=== PATIENT | male | born 1950 | race Caucasian/White ===

== ENCOUNTER → 2023-09-20 06:40 | Outpatient (REF) | payer MEDICARE, SELFPAY ==
[2023-09-20 10:13] LABS: Urine Albumin Trace (Neg - Trace); Urine Bilirubin 1+ (Negative); Urine Character Clear (Clear); Urine Color Yellow; Urine Glucose Negative (Negative); Urine Ketone Trace (Negative); Urine Leukocyte Trace (Negative); Urine Nitrite Negative (Negative); Urine Occult Blood Trace (Negative); Urine Specific Gravity 1.025 (<1.030); Urine Urobilinogen 2+ (Neg - 1+)
[2023-09-20 10:48] LABS: % Basophils 0.8 % (0-2); % Eosinophils 2.3 % (0-6); % Immature Granulocytes 0.4 % (0-0.5); % Lymphocytes 27.9 % (20.5-51.1); % Monocytes 12.9 % (1.7-9.3); % Neutrophils 55.7 % (42.2-75.2); Absolute Eosinophils 0.1 10^3/uL (0-0.7); Absolute Lymphocytes 1.5 10^3/uL (1.2-3.4); Absolute Monocytes 0.7 10^3/uL (0.1-0.6); Absolute Neutrophils 2.9 10^3/uL (1.4-6.5); Hematocrit 46.5 % (39.0-52.0); Hemoglobin 15.9 g/dL (13.0-18.0); Mean Corp Hgb Conc. 34.2 g/dL (33.0-37.0); Mean Corpuscular Hgb 34.6 pg (27.0-31.0); Mean Corpuscular Volume 101.1 fL (80.0-94.0); Mean Platelet Volume 10.2 fL (7.4-10.4); Nucleated Red Blood Cells % 0 % (-); Platelet Count 258 10^3/uL (130-400); Red Cell Dist. Width 12.4 % (11.5-14.5); White Blood Cell Count 5.3 10^3/uL (4.8-10.8)
[2023-09-20 11:01] LABS: ALT (SGPT) 59 U/L (0-50); AST (SGOT) 54 U/L (17-59); Albumin 4.6 g/dl (3.5-5.0); Alkaline Phosphatase 86 U/L (38-126); Blood Urea Nitrogen 13 mg/dl (9-20); Calcium 9.6 mg/dl (8.4-10.2); Carbon Dioxide 23 mmol/L (22-30); Chloride 106 mmol/L (98-107); Glucose 116 mg/dl (70-99); HDL Cholesterol 49 mg/dl; LDL Cholesterol, Calculated 109 mg/dl; Potassium 4.4 mmol/L (3.5-5.1); Sodium 138 mmol/L (135-145); Total Bilirubin 1.2 mg/dl (0.2-1.3); Total Cholesterol 179 mg/dl (50-199); Total Protein 7.5 g/dl (6.3-8.2); Triglyceride 108 mg/dl (10-149); Very Low Density Lipoprotein 21 mg/dl (0-30); eGFR > 60.00
[2023-09-20 11:05] LABS: PSA, Total - Diagnostic 0.32 ng/ml (0.0-4.0); TSH 1.49 uIU/ml (0.47-4.68)
[2023-09-20 11:47] LABS: Glycohemoglobin (HgbA1c) 5.8 % (4.0-5.6)
[2023-09-20 12:21] LABS: Urine Amorphous Seen; Urine Mucus Moderate
[2023-09-20 12:22] LABS: Urine Red Blood Cell 0-2 /HPF (0-2); Urine White Cell 0-2 /HPF (0-5)
== END ==
LOC: HWLAB 06:40
PROVIDERS: ATTENDING PHYSICIAN Family Medicine Geriatric Medicine; FAMILY PHYSICIAN Internal Medicine
DX: C61 Malignant neoplasm of prostate (principal); I10 Essential (primary) hypertension; R73.01 Impaired fasting glucose; K21.9 Gastro-esophageal reflux disease without esophagitis; I48.19 Other persistent atrial fibrillation
CPT/HCPCS: 36415; 80053; 80061; 81003; 81015; 83036; 84153; 84443; 85025

== ENCOUNTER → 2023-09-21 07:53 | Outpatient (REF) | payer MEDICARE, SELFPAY | LOC: RAD 07:53 | PROVIDERS: ATTENDING PHYSICIAN Internal Medicine | DX: R74.8 Abnormal levels of other serum enzymes (principal); R82.2 Biliuria | CPT/HCPCS: 76700 ==

== ENCOUNTER → 2024-02-01 10:08 | Outpatient (REF) | payer MEDICARE, SELFPAY | LOC: HWRCS 10:08 | PROVIDERS: ATTENDING PHYSICIAN Internal Medicine; FAMILY PHYSICIAN Internal Medicine | DX: I48.21 Permanent atrial fibrillation (principal); I34.0 Nonrheumatic mitral (valve) insufficiency | CPT/HCPCS: 93306 ==

== ENCOUNTER → 2024-08-11 06:46 | Outpatient (REF) | payer MEDICARE, SELFPAY ==
[2024-08-11 09:32] LABS: % Basophils 0.8 % (0-2); % Immature Granulocytes 0.4 % (0-0.5); % Lymphocytes 28.1 % (20.5-51.1); % Monocytes 12.9 % (1.7-9.3); % Neutrophils 54.8 % (42.2-75.2); Absolute Eosinophils 0.2 10^3/uL (0-0.7); Absolute Lymphocytes 1.4 10^3/uL (1.2-3.4); Absolute Monocytes 0.7 10^3/uL (0.1-0.6); Absolute Neutrophils 2.8 10^3/uL (1.4-6.5); Hematocrit 39.1 % (39.0-52.0); Hemoglobin 13.9 g/dL (13.0-18.0); Mean Corp Hgb Conc. 35.5 g/dL (33.0-37.0); Mean Corpuscular Hgb 34.9 pg (27.0-31.0); Mean Corpuscular Volume 98.2 fL (80.0-94.0); Mean Platelet Volume 9.8 fL (7.4-10.4); Nucleated Red Blood Cells % 0 % (-); Platelet Count 216 10^3/uL (130-400); Red Blood Cell Count 3.98 10^6/uL (4.70-6.10); Red Cell Dist. Width 12.4 % (11.5-14.5)
[2024-08-11 09:33] LABS: Urine Albumin 1+ (Neg - Trace); Urine Bilirubin Negative (Negative); Urine Character Clear (Clear); Urine Color Yellow; Urine Glucose Negative (Negative); Urine Ketone Negative (Negative); Urine Leukocyte Negative (Negative); Urine Nitrite Negative (Negative); Urine Occult Blood Negative (Negative); Urine Urobilinogen Negative (Neg - 1+)
[2024-08-11 09:54] LABS: Glycohemoglobin (HgbA1c) 5.7 % (4.0-5.6)
[2024-08-11 10:20] LABS: ALT (SGPT) 42 U/L (0-50); AST (SGOT) 39 U/L (17-59); Albumin 4.4 g/dl (3.5-5.0); Alkaline Phosphatase 93 U/L (38-126); Blood Urea Nitrogen 13 mg/dl (9-20); Calcium 9.3 mg/dl (8.4-10.2); Carbon Dioxide 22 mmol/L (22-30); Chloride 103 mmol/L (98-107); Glucose 115 mg/dl (70-99); HDL Cholesterol 45 mg/dl; LDL Cholesterol, Calculated 84 mg/dl; Potassium 4.2 mmol/L (3.5-5.1); Sodium 136 mmol/L (135-145); Total Bilirubin 1.1 mg/dl (0.2-1.3); Total Cholesterol 141 mg/dl (50-199); Total Protein 6.9 g/dl (6.3-8.2); Triglyceride 64 mg/dl (10-149); Very Low Density Lipoprotein 12 mg/dl (0-30); eGFR > 60.00
[2024-08-11 10:21] LABS: Urine Mucus Many; Urine Squamous Cell 16-20 /LPF (Few)
[2024-08-11 10:22] LABS: Urine Amorphous Seen; Urine Urothelial Cell 0-2 /LPF (FEW)
[2024-08-11 10:23] LABS: Urine Red Blood Cell 0-2 /HPF (0-2); Urine White Cell 0-2 /HPF (0-5)
[2024-08-11 11:15] LABS: TSH 1.32 uIU/ml (0.47-4.68)
[2024-08-11 11:21] LABS: Folate 13.7 ng/ml (2.76-20); Vitamin B12 < 159 pg/ml (239-931)
== END ==
LOC: HWLAB 06:46
PROVIDERS: ATTENDING PHYSICIAN Internal Medicine
DX: C61 Malignant neoplasm of prostate (principal); R35.1 Nocturia; K21.9 Gastro-esophageal reflux disease without esophagitis; R73.01 Impaired fasting glucose; I10 Essential (primary) hypertension; I48.19 Other persistent atrial fibrillation; Z79.899 Other long term (current) drug therapy
CPT/HCPCS: 36415; 80053; 80061; 81003; 81015; 82607; 82746; 83036; 84153; 84443; 85025

== ENCOUNTER → 2024-08-14 06:54 | Outpatient (REF) | payer MEDICARE, SELFPAY ==
[2024-08-15 15:43] LABS: Intrinsic Factor Blocking Ab Negative (Negative)
[2024-08-15 23:26] LABS: Homocysteine 16 umol/L (0-15)
[2024-08-16 20:20] LABS: Methylmalonic Acid 0.36 umol/L (0.00-0.40)
== END ==
LOC: HWLAB 06:54
PROVIDERS: ATTENDING PHYSICIAN Internal Medicine
DX: E53.8 Deficiency of other specified B group vitamins (principal)
CPT/HCPCS: 36415; 83090; 83921; 86340

== ENCOUNTER 2024-10-06 06:36 | Outpatient (RCR) | payer MEDICARE, SELFPAY | END 2024-10-06 23:59 | disposition home or self-care (01) | LOC: RPT 06:36 | PROVIDERS: ATTENDING PHYSICIAN Family Medicine Geriatric Medicine; FAMILY PHYSICIAN Internal Medicine | DX: R35.0 Frequency of micturition (principal); Z73.6 Limitation of activities due to disability; M62.81 Muscle weakness (generalized); K58.0 Irritable bowel syndrome with diarrhea; Z85.46 Personal history of malignant neoplasm of prostate; Z92.3 Personal history of irradiation | CPT/HCPCS: 97110; 97161; 97530 ==

== ENCOUNTER 2024-11-05 06:42 | Outpatient (RCR) | payer MEDICARE, SELFPAY | END 2024-11-05 23:59 | disposition home or self-care (01) | LOC: RPT 06:42 | PROVIDERS: ATTENDING PHYSICIAN Family Medicine Geriatric Medicine; FAMILY PHYSICIAN Internal Medicine | DX: R35.0 Frequency of micturition (principal); Z73.6 Limitation of activities due to disability; M62.81 Muscle weakness (generalized); K58.0 Irritable bowel syndrome with diarrhea; Z85.46 Personal history of malignant neoplasm of prostate; Z92.3 Personal history of irradiation | CPT/HCPCS: 97110; 97140 ==

== ENCOUNTER 2024-11-19 07:49 | Outpatient (RCR) | payer MEDICARE, SELFPAY | END 2024-11-19 09:34 | disposition home or self-care (01) | LOC: RPT 07:49 | PROVIDERS: ATTENDING PHYSICIAN Family Medicine Geriatric Medicine; FAMILY PHYSICIAN Internal Medicine | DX: R35.0 Frequency of micturition (principal); Z73.6 Limitation of activities due to disability; M62.81 Muscle weakness (generalized); K58.0 Irritable bowel syndrome with diarrhea; Z85.46 Personal history of malignant neoplasm of prostate; Z92.3 Personal history of irradiation | CPT/HCPCS: 97110 ==

== ENCOUNTER → 2025-02-17 06:23 | Outpatient (REF) | payer MEDICARE, SELFPAY ==
[2025-02-17 10:03] LABS: PSA, Total - Diagnostic 0.22 ng/ml (0.0-4.0)
== END ==
LOC: HWLAB 06:23
PROVIDERS: ATTENDING PHYSICIAN Family Medicine Geriatric Medicine; FAMILY PHYSICIAN Internal Medicine
DX: C61 Malignant neoplasm of prostate (principal)
CPT/HCPCS: 36415; 84153

== ENCOUNTER → 2025-05-07 06:22 | Outpatient (REF) | payer MEDICARE, SELFPAY ==
[2025-05-07 10:36] LABS: Hematocrit 43.9 % (39.0-52.0); Hemoglobin 15.1 g/dL (13.0-18.0); Mean Corp Hgb Conc. 34.4 g/dL (33.0-37.0); Mean Corpuscular Volume 101.6 fL (80.0-94.0); Nucleated Red Blood Cells % 0 % (-); Platelet Count 239 10^3/uL (130-400); Red Cell Dist. Width 12.0 % (11.5-14.5)
[2025-05-07 10:47] LABS: Urine Character Clear (Clear)
[2025-05-07 10:59] LABS: ALT (SGPT) 50 U/L (0-50); AST (SGOT) 47 U/L (17-59); Albumin 4.3 g/dl (3.5-5.0); Alkaline Phosphatase 80 U/L (38-126); Blood Urea Nitrogen 11 mg/dl (9-20); Calcium 9.2 mg/dl (8.4-10.2); Carbon Dioxide 25 mmol/L (22-30); Chloride 105 mmol/L (98-107); Glucose 109 mg/dl (70-99); HDL Cholesterol 47 mg/dl; LDL Cholesterol, Calculated 92 mg/dl; Potassium 4.2 mmol/L (3.5-5.1); Sodium 136 mmol/L (135-145); Total Protein 7.4 g/dl (6.3-8.2); Very Low Density Lipoprotein 15 mg/dl (0-30); eGFR > 60.00
[2025-05-07 11:02] LABS: Glycohemoglobin (HgbA1c) 5.6 % (4.0-5.9)
[2025-05-07 13:13] LABS: TSH 1.41 uIU/ml (0.47-4.68)
== END ==
LOC: HWLAB 06:22
PROVIDERS: ATTENDING PHYSICIAN Internal Medicine
DX: I10 Essential (primary) hypertension (principal); I48.21 Permanent atrial fibrillation; R73.01 Impaired fasting glucose
CPT/HCPCS: 36415; 80053; 80061; 81003; 81015; 83036; 84443; 85025